=== PATIENT | male | born 1940 | race Caucasian/White ===

== ENCOUNTER 2017-07-07 12:09 | Observation (INO) | payer OTHER, MEDICARE ==
[~2017-07-07] VITALS: Ht 195.6 cm; Wt 137.0 kg
[2017-07-07 12:10] VITALS: BP 165/87; PULSE 79; RESP 16; TEMP 97.8; O2SAT 96
[2017-07-07 13:02] LABS: AUTOMATED NEUTROPHIL # 4.8 TH/MM3 (1.8-7.7); BASOPHIL # 0.1 TH/MM3 (0-0.2); EOSINOPHIL # 0.3 TH/MM3 (0-0.4); EOSINOPHIL % 3.9 % (0.0-4.0); HEMATOCRIT 48.6 % (39.0-51.0); HEMOGLOBIN 16.4 GM/DL (13.0-17.0); LYMPH % 30.8 % (9.0-44.0); LYMPHOCYTE # 2.7 TH/MM3 (1.0-4.8); MEAN CELL VOLUME 90.5 FL (80.0-100.0); MEAN CORPUSCULAR HEMOGLOBIN 30.6 PG (27.0-34.0); MEAN CORPUSCULAR HGB CONC 33.8 % (32.0-36.0); MEAN PLATELET VOLUME 9.4 FL (7.0-11.0); MONO % 9.8 % (0.0-8.0); MONOCYTE # 0.9 TH/MM3 (0-0.9); NEUT % 54.5 % (16.0-70.0); PLATELET COUNT 241 TH/MM3 (150-450); RED BLOOD COUNT 5.37 MIL/MM3 (4.50-5.90); RED CELL DISTRIBUTION WIDTH 14.5 % (11.6-17.2); WHITE BLOOD COUNT 8.8 TH/MM3 (4.0-11.0)
[2017-07-07] MEDS ORDERED: ASPIRIN 81 MG CHEW TAB PO ONE (13:15)
[2017-07-07] MEDS ORDERED: SODIUM CHLORID 0.9% 500 ML INJ 500 ML IV ONE (13:15)
[2017-07-07] MEDS ORDERED: SODIUM CHLORIDE 0.9% FLUSH 10 ML FLUSH IVF PRN (13:15)
[2017-07-07 13:25] LABS: BICARBONATE 29.1 MEQ/L (21.0-32.0); BLOOD UREA NITROGEN 11 MG/DL (7-18); CALCIUM 9.6 MG/DL (8.5-10.1); CHLORIDE 104 MEQ/L (98-107); CREATININE 0.96 MG/DL (0.60-1.30); GLOMERULAR FILTRATION RATE 76 ML/MIN (>89); GLUCOSE,RANDOM 97 MG/DL (74-106); SODIUM (NA) 139 MEQ/L (136-145); TROPONIN I LESS THAN 0.02 NG/ML (0.02-0.05)
[2017-07-07 13:51] LABS: PROTHROMBIN TIME - PATIENT 10.1 SEC (9.8-11.6)
[2017-07-07] MEDS ORDERED: ENAL20TA PO (13:57)
[2017-07-07] MEDS ORDERED: SELE2.5%T TOPICAL (13:57)
[2017-07-07] MEDS ORDERED: TRAM50TA PO (13:57)
[2017-07-07] MEDS ORDERED: OMEP20TA93 PO (13:57)
[2017-07-07] MEDS ORDERED: FLUO0.05 TOPICAL (13:57)
[2017-07-07] MEDS ORDERED: SIMV80TA PO (13:57)
--- NOTE | 2017-07-07 14:04 | RADRPT ---
EXAM DATE/TIME: 07/07/2017 13:38 [facility] COMPARISON: No previous studies available for comparison. INDICATIONS : Chest pain. MEDICAL HISTORY : None. SURGICAL HISTORY : None. ENCOUNTER: Initial ACUITY: 3 days PAIN SCORE: 7/10 LOCATION: Left upper chest FINDINGS: Mild compensated cardiomegaly without failure. No infiltrate, pneumothorax or effusion. The portion of the bony skeleton visualized is unremarkable. CONCLUSION: Mild compensated cardiomegaly. Fritz Gaines MD FACR on July 07, 2017 at 14:01 Board Certified Radiologist. This report was verified electronically.
[2017-07-07 14:12] LABS: ALBUMIN 3.7 GM/DL (3.4-5.0); ALT (GPT) 32 U/L (12-78); AST (GOT) 26 U/L (15-37); BICARBONATE 29.3 MEQ/L (21.0-32.0); BLOOD UREA NITROGEN 11 MG/DL (7-18); CHLORIDE 106 MEQ/L (98-107); CREATININE 0.89 MG/DL (0.60-1.30); GLOMERULAR FILTRATION RATE 83 ML/MIN (>89); GLUCOSE,RANDOM 91 MG/DL (74-106); MAGNESIUM 2.2 MG/DL (1.5-2.5); SODIUM (NA) 139 MEQ/L (136-145)
[2017-07-07 14:16] LABS: ALKALINE PHOSPHATASE 101 U/L (45-117); TOTAL BILIRUBIN ADULT 0.5 MG/DL (0.2-1.0); TROPONIN I LESS THAN 0.02 NG/ML (0.02-0.05)
--- NOTE | 2017-07-07 14:55 | PD ---
HPI Chief Complaint: Chest Pain Time Seen by Provider: 13:06 Travel History International Travel<30 days: No Contact w/Intl Traveler<30days: No Traveled to known affect area: No History of Present Illness HPI 76-year-old male brought over from the [place] with 3 day history of possible angina and chest pain. Patient was seen by his doctor at the [place] this morning and then referred here for further evaluation and workup. Patient has no previous history of LA or cardiac stent. He is unsure if he is ever had a stress test. He does take aspirin daily but does not take nitroglycerin. Patient states his pain is currently about a 1 out of 10. It is been intermittent over the past 3 days. He states that when it comes on it last about 30 seconds. Does not sound to be related to exertion. Patient denies nausea, vomiting, cough, shortness of breath, fever or chills. Patient has no known drug allergies. PFSH Past Medical History High Cholesterol: Yes Gastrointestinal Disorders: Yes (STEATOSIS OF LIVER, GASTROPARESIS) GERD: Yes Reproductive: Yes (ED, BPH) Myocardial Infarction: Yes Tetanus Vaccination: Unknown Influenza Vaccination: Yes Past Surgical History Abdominal Surgery: Yes (HERNIA REPAIR, UMBILICAL AND INGUINAL) Cholecystectomy: Yes Social History Alcohol Use: Yes (ONCE A MONTH) Tobacco Use: No Substance Use: No Allergies-Medications (Allergen,Severity, Reaction): Coded Allergies: No Known Allergies (Unverified , 07/07/17) Reported Meds & Prescriptions Reported Meds & Active Scripts Active Reported Selenium Sulfide Topical 2.5% (Selenium Sulfide) 2.5 % Lotn 1 Applic TOPICAL 2XWEEK Fluocinonide Topical (Fluocinonide) 0.05% Cream 1 Applic TOPICAL BID Apply thin layer to affected area(s) Omeprazole 20 Mg Tab 20 Mg PO DAILY Enalapril (Enalapril Maleate) 20 Mg Tab 20 Mg PO DAILY Tramadol (Tramadol HCl) 50 Mg Tab 50 Mg PO Q6H PRN Simvastatin 80 Mg Tab 80 Mg PO DAILY Review of Systems Except as stated in HPI: all other systems reviewed are Neg General / Constitutional: No: Fever, Chills Eyes: No: Visual changes HENT: No: Headaches Cardiovascular: Positive: Chest Pain or Discomfort Respiratory: No: Shortness of Breath Gastrointestinal: No: Abdominal Pain Genitourinary: No: Dysuria Musculoskeletal: No: Pain Skin: No Rash Neurologic: No: Weakness Psychiatric: No: Depression Endocrine: No: Polydipsia Hematologic/Lymphatic: No: Easy Bruising Physical Exam Narrative GENERAL: Patient appears in no acute distress SKIN: Warm and dry. Normal color. Normal turgor. HEAD: Atraumatic. Normocephalic. EYES: Pupils equal and round. No scleral icterus. No injection or drainage. ENT: No nasal bleeding or discharge. Mucous membranes pink and moist. Pharynx is clear. Airways patent NECK: Trachea midline. Supple and nontender CARDIOVASCULAR: Regular rate and rhythm. No murmurs gallops or rubs. RESPIRATORY: No accessory muscle use. Clear to auscultation. Breath sounds equal bilaterally. MUSCULOSKELETAL: Extremities without clubbing, cyanosis, or edema. No obvious deformities. NEUROLOGICAL: Awake and alert. No obvious cranial nerve deficits. Motor grossly within normal limits. Five out of 5 muscle strength in the arms and legs. Normal speech. PSYCHIATRIC: Appropriate mood and affect; insight and judgment normal. Data Data Last Documented VS Vital Signs Date Time Temp Pulse Resp B/P (MAP) Pulse Ox O2 Delivery O2 Flow Rate FiO2 07/07/17 12:10 97.8 79 16 165/87 (113) 96 Orders Orders Electrocardiogram (07/07/17 12:20) Complete Blood Count With Diff (07/07/17 12:20) Basic Metabolic Panel (Bmp) (07/07/17 12:20) Ckmb (Isoenzyme) Profile (07/07/17 12:20) Troponin I (07/07/17 12:20) Electrocardiogram (07/07/17 13:13) Ckmb (Isoenzyme) Profile (07/07/17 13:13) Comprehensive Metabolic Panel (07/07/17 13:13) Magnesium (Mg) (07/07/17 13:13) Prothrombin Time / Inr (Pt) (07/07/17 13:13) Act Partial Throm Time (Ptt) (07/07/17 13:13) Troponin I (07/07/17 13:13) Lipase (07/07/17 13:13) Chest, Single Ap (07/07/17 13:13) Ecg Monitoring (07/07/17 13:13) Bilateral Bp Monitoring (07/07/17 13:13) Iv Access Insert/Monitor (07/07/17 13:13) Oximetry (07/07/17 13:13) Oxygen Administration (07/07/17 13:13) Aspirin Chew (Aspirin Chew) (07/07/17 13:15) Sodium Chloride 0.9% Flush (Ns Flush) (07/07/17 13:15) Sodium Chlorid 0.9% 500 Ml Inj (Ns 500 M (07/07/17 13:15) Admit Order (Ed Use Only) (07/07/17 14:49) Labs Laboratory Tests Test 07/07/17 12:38 07/07/17 13:27 White Blood Count 8.8 TH/MM3 Red Blood Count 5.37 MIL/MM3 Hemoglobin 16.4 GM/DL Hematocrit 48.6 % Mean Corpuscular Volume 90.5 FL Mean Corpuscular Hemoglobin 30.6 PG Mean Corpuscular Hemoglobin Concent 33.8 % Red Cell Distribution Width 14.5 % Platelet Count 241 TH/MM3 Mean Platelet Volume 9.4 FL Neutrophils (%) (Auto) 54.5 % Lymphocytes (%) (Auto) 30.8 % Monocytes (%) (Auto) 9.8 % Eosinophils (%) (Auto) 3.9 % Basophils (%) (Auto) 1.0 % Neutrophils # (Auto) 4.8 TH/MM3 Lymphocytes # (Auto) 2.7 TH/MM3 Monocytes # (Auto) 0.9 TH/MM3 Eosinophils # (Auto) 0.3 TH/MM3 Basophils # (Auto) 0.1 TH/MM3 CBC Comment DIFF FINAL Differential Comment Blood Urea Nitrogen 11 MG/DL 11 MG/DL Creatinine 0.96 MG/DL 0.89 MG/DL Random Glucose 97 MG/DL 91 MG/DL Calcium Level 9.6 MG/DL 9.0 MG/DL Sodium Level 139 MEQ/L 139 MEQ/L Potassium Level 4.4 MEQ/L 4.3 MEQ/L Chloride Level 104 MEQ/L 106 MEQ/L Carbon Dioxide Level 29.1 MEQ/L 29.3 MEQ/L Anion Gap 6 MEQ/L 4 MEQ/L Estimat Glomerular Filtration Rate 76 ML/MIN 83 ML/MIN Total Creatine Kinase 74 U/L 76 U/L Troponin I LESS THAN 0.02 NG/ML LESS THAN 0.02 NG/ML Prothrombin Time 10.1 SEC Prothromb Time International Ratio 1.0 RATIO Activated Partial Thromboplast Time 25.4 SEC Total Protein 8.0 GM/DL Albumin 3.7 GM/DL Magnesium Level 2.2 MG/DL Alkaline Phosphatase 101 U/L Aspartate Amino Transf (AST/SGOT) 26 U/L Alanine Aminotransferase (ALT/SGPT) 32 U/L Total Bilirubin 0.5 MG/DL Lipase 119 U/L [facility] Medical Decision Making Medical Screen Exam Complete: Yes Emergency Medical Condition: Yes Differential Diagnosis Chest pain. Unstable angina. Cardiac syndrome. Narrative Course EKG shows normal sinus with right bundle branch block. Labs are unremarkable with first troponin less than 0.02. Patient is given an additional 234 mg aspirin p.o. IV access is obtained, the patient is given 500 mL's of normal saline. Chest x-ray is unremarkable for acute process. Patient will be admitted to the chest pain center for further evaluation and workup. Diagnosis Primary Impression: Chest pain at rest Admitting Information Admitting Physician Requests: Observation Condition: Stable Kristian Arreguin Jul 07, 2017 14:55
[2017-07-07] MEDS ORDERED: ACETAMINOPHEN 500 MG CPLT PO PRN (16:00)
[2017-07-07] MEDS ORDERED: ONDANSETRON HCL 4 MG/2 ML VIAL IV PUSH PRN (16:00)
[2017-07-07] MEDS ORDERED: NITROGLYCERIN 0.4 MG SL 25 TABS/BTL SL PRN (16:00)
--- NOTE | 2017-07-07 16:36 | HHI.HP ---
HPI Primary Care Physician [facility] Chief Complaint chest pain History of Present Illness 76-year-old male with history of hypertension, hyperlipidemia, and GERD presents emergency room for further evaluation of chest pain. [facility]en [facility] today notify PCP of 3 day history of reported nonexertional chest pain. Location points to epigastric area. Radiation to left jaw.. Characterized as dull pain. No associated symptoms of nausea, vomiting, or dyspnea. Endorses occasional diaphoresis. Duration typically lasts 45 minutes and then eases up. No known precipitating or relieving factors. Review of Systems General: No fatigue,weakness, fever, chills, or recent illness change in appetite. Has been adjusted help. HEENT: No IQBAL, no vision changes, no nasal congestion or drainage, no dysphasia CV: No CP, pressure, palpitations, intermittent leg pain, dizziness RESP: No SOB, cough, wheeze, hemoptysis, asthma GI: No nausea or vomiting, bowel changes, diarrhea, constipation, pain, distention, melena, blood in the stool. No change in appetite, no unintentional weight gain or weight loss : No dysuria, urgency, frequency, hematuria, or history of kidney stones EXT: No lower leg edema, no parathesias MS: No discomfort or change in ROM NEURO: No change in memory, dizziness, difficulty with balance, LOC, motor/ sensory deficits PSYCH: No anxiety, depression, suicidal ideation SKIN: No rashes, no concerning lesions Past Family Social History Allergies: Coded Allergies: No Known Allergies (Unverified , 07/07/17) Past Medical History GERD, hyperlipidemia, hypertension, BPH, chronic pain Past Surgical History Hernia repair, cholecystectomy Reported Medications Reported Meds & Active Scripts Active Reported Selenium Sulfide Topical 2.5% (Selenium Sulfide) 2.5 % Lotn 1 Applic TOPICAL 2XWEEK Fluocinonide Topical (Fluocinonide) 0.05% Cream 1 Applic TOPICAL BID Apply thin layer to affected area(s) Omeprazole 20 Mg Tab 20 Mg PO DAILY Enalapril (Enalapril Maleate) 20 Mg Tab 20 Mg PO DAILY Tramadol (Tramadol HCl) 50 Mg Tab 50 Mg PO Q6H PRN Simvastatin 80 Mg Tab 80 Mg PO DAILY Active Ordered Medications Current Medications Medications (Trade) Dose Ordered Sig/Henna Route Start Time Stop Time Status Last Admin (NS Flush) 2 ml UNSCH PRN IVF 07/07/17 13:15 (NS Flush) 2 ml BID IV FLUSH 07/07/17 21:00 (Tylenol) 500 mg Q4H PRN PO 07/07/17 16:00 (Zofran Inj) 4 mg Q6H PRN IV PUSH 07/07/17 16:00 (Nitrostat Sl) 0.4 mg Q5M PRN SL 07/07/17 16:00 (Aspirin) 325 mg DAILY PO 07/08/17 09:00 Social History Known hyperlipidemia and hypertension. No known coronary artery disease or diabetes. Lifelong nonsmoker. Denies alcohol or illegal drug use. . Retired. [employer] Past cardiac testing No past cardiac testing. Denies ever having cardiac catheterization. Physical Exam Vital Signs Vital Signs Date Time Temp Pulse Resp B/P (MAP) Pulse Ox O2 Delivery O2 Flow Rate FiO2 07/07/17 12:10 97.8 79 16 165/87 (113) 96 Physical Exam GENERAL: Alert WN, WD, NAD, pleasant, moderately obese male HEAD: NC, AT CV: RRR, without murmur, rub, gallop, no JVD, S1-S2 no S3-S4. RESP: Clear lungs throughout bilateral, no crackles, wheeze, rhonchi, symmetrical chest rise, nonlabored, able to speak in full sentences ABD: Soft, NT, ND, no masses, positive bowel tones EXT: Pulses +24, no dependent edema MS: Normal tone 4 extremities, nontender, no obvious deformities, full range of motion NEURO: CN II through CN XII grossly intact, motor strength 5/5 PSYCH: A+O 3, pleasant affect, appropriate speech, appropriate mood and affect , insight and judgment SKIN: Normal turgor, normal texture, no lesions, no rashes, brisk cap refill, even hair distribution Laboratory Laboratory Tests Test 07/07/17 12:38 07/07/17 13:27 White Blood Count 8.8 Red Blood Count 5.37 Hemoglobin 16.4 Hematocrit 48.6 Mean Corpuscular Volume 90.5 Mean Corpuscular Hemoglobin 30.6 Mean Corpuscular Hemoglobin Concent 33.8 Red Cell Distribution Width 14.5 Platelet Count 241 Mean Platelet Volume 9.4 Neutrophils (%) (Auto) 54.5 Lymphocytes (%) (Auto) 30.8 Monocytes (%) (Auto) 9.8 Eosinophils (%) (Auto) 3.9 Basophils (%) (Auto) 1.0 Neutrophils # (Auto) 4.8 Lymphocytes # (Auto) 2.7 Monocytes # (Auto) 0.9 Eosinophils # (Auto) 0.3 Basophils # (Auto) 0.1 CBC Comment DIFF FINAL Differential Comment Blood Urea Nitrogen 11 11 Creatinine 0.96 0.89 Random Glucose 97 91 Calcium Level 9.6 9.0 Sodium Level 139 139 Potassium Level 4.4 4.3 Chloride Level 104 106 Carbon Dioxide Level 29.1 29.3 Anion Gap 6 4 Estimat Glomerular Filtration Rate 76 83 Total Creatine Kinase 74 76 Troponin I LESS THAN 0.02 LESS THAN 0.02 Prothrombin Time 10.1 Prothromb Time International Ratio 1.0 Activated Partial Thromboplast Time 25.4 Total Protein 8.0 Albumin 3.7 Magnesium Level 2.2 Alkaline Phosphatase 101 Aspartate Amino Transf (AST/SGOT) 26 Alanine Aminotransferase (ALT/SGPT) 32 Total Bilirubin 0.5 Lipase 119 Result Diagram: 07/07/17 1238 07/07/17 1327 Imaging Last 48 hours Impressions Chest X-Ray 07/07/17 1313 Signed Impressions: Service Date/Time: Friday, July 07, 2017 13:38 - CONCLUSION: Mild compensated cardiomegaly. Fritz Gaines MD FACR Course EKG normal sinus rhythm right bundle branch block Caprini VTE Risk Assessment Caprini VTE Risk Assessment: Mod/High Risk (score >= 2) Caprini Risk Assessment Model Point Value = 1 Point Value = 2 Point Value = 3 Point Value = 5 Age 41-60 Minor surgery BMI > 25 kg/m2 Swollen legs Varicose veins or History of unexplained or recurrent spontaneous Oral contraceptives or hormone replacement Sepsis (< 1 month) Serious lung disease, including pneumonia (< 1 month) Abnormal pulmonary function Acute myocardial infarction Congestive heart failure (< 1 month) History of inflammatory bowel disease Medical patient at bed rest Age 61-74 Arthroscopic surgery Major open surgery (> 45 min) Laparoscopic surgery (> 45 min) Malignancy Confined to bed (> 72 hours) Immobilizing plaster cast Central venous access Age >= 75 History of VTE Family history of VTE Factor V Leiden Prothrombin [id number] Lupus anticoagulant Anticardiolipin antibodies Elevated serum homocysteine Heparin-induced thrombocytopenia Other congenital or acquired thrombophilia Stroke (< 1 month) Elective arthroplasty Hip, pelvis, or leg fracture Acute spinal cord injury (< 1 month) Prophylaxis Regimen Total Risk Factor Score Risk Level Prophylaxis Regimen 0-1 Low Early ambulation 2 Moderate Order ONE of the following: *Sequential Compression Device (SCD) *Heparin 5000 units SQ BID 3-4 Higher Order ONE of the following medications: *Heparin 5000 units SQ TID *Enoxaparin/Lovenox 40 mg SQ daily (WT < 150 kg, CrCl > 30 mL/min) *Enoxaparin/Lovenox 30 mg SQ daily (WT < 150 kg, CrCl > 10-29 mL/min) *Enoxaparin/Lovenox 30 mg SQ BID (WT < 150 kg, CrCl > 30 mL/min) AND/OR *Sequential Compression Device (SCD) 5 or more Highest Order ONE of the following medications: *Heparin 5000 units SQ TID (Preferred with Epidurals) *Enoxaparin/Lovenox 40 mg SQ daily (WT < 150 kg, CrCl > 30 mL/min) *Enoxaparin/Lovenox 30 mg SQ daily (WT < 150 kg, CrCl > 10-29 mL/min) *Enoxaparin/Lovenox 30 mg SQ BID (WT < 150 kg, CrCl > 30 mL/min) AND *Sequential Compression Device (SCD) Assessment and Plan Assessment and Plan Atypical chest pain-admitted chest pain center. Rule out with 3 sets of EKGs, cardiac enzymes, monitoring Solish overnight. Seen and evaluated by Dr. Tiburcio Sharma. Discomfort suggestive of acid reflux, however due to risk factors plan to complete Lexiscan in a.m. Patient agreeable plan of care. GERD-continue omeprazole [place] Jul 07, 2017 16:36
[2017-07-07 17:02] VITALS: BP 142/82; PULSE 72; RESP 18; TEMP 98; O2SAT 96
[2017-07-07 17:46] LABS: TROPONIN I LESS THAN 0.02 NG/ML (0.02-0.05)
[2017-07-07 20:11] VITALS: BP 133/60; PULSE 68; RESP 18; TEMP 98; O2SAT 91
[2017-07-07] MEDS: SODIUM CHLORIDE 0.9% FLUSH 10 ML FLUSH IV FLUSH SCH (20:30)
[2017-07-07 23:00] VITALS: PULSE 67
[2017-07-08 01:00] VITALS: BP 119/58; PULSE 68; RESP 18; TEMP 98; O2SAT 92
[2017-07-08 05:58] VITALS: BP 168/78; PULSE 74; RESP 18; TEMP 98; O2SAT 97
[2017-07-08 07:00] VITALS: PULSE 63
--- NOTE | 2017-07-08 08:18 | PD.CARD.PN ---
Subjective Subjective Remarks No complaints overnight. Continues to have epigastric mild constant discomfort with an occasional metallic taste. Constant Monday episode. Expresses increase family situational stress due to conflict with granddaughter. Objective Medications Current Medications Medications (Trade) Dose Ordered Sig/Henna Route Start Time Stop Time Status Last Admin (NS Flush) 2 ml UNSCH PRN IVF 07/07/17 13:15 (NS Flush) 2 ml BID IV FLUSH 07/07/17 21:00 (Tylenol) 500 mg Q4H PRN PO 07/07/17 16:00 (Zofran Inj) 4 mg Q6H PRN IV PUSH 07/07/17 16:00 (Nitrostat Sl) 0.4 mg Q5M PRN SL 07/07/17 16:00 (Aspirin) 325 mg DAILY PO 07/08/17 09:00 (Vasotec) 20 mg DAILY PO 07/08/17 09:00 (Protonix) 20 mg DAILY PO 07/08/17 09:00 (Pravachol) 80 mg DAILY PO 07/08/17 09:00 Vital Signs / I&O Vital Signs Date Time Temp Pulse Resp B/P (MAP) Pulse Ox O2 Delivery O2 Flow Rate FiO2 07/08/17 05:58 98.0 74 18 168/78 (108) 97 07/08/17 01:00 98.0 68 18 119/58 (78) 92 07/07/17 23:00 67 07/07/17 20:11 98.0 68 18 133/60 (84) 91 07/07/17 17:02 98.0 72 18 142/82 (102) 96 07/07/17 16:40 07/07/17 12:10 97.8 79 16 165/87 (113) 96 I/O 07/07/17 07/07/17 07/07/17 07/08/17 07/08/17 07/08/17 07:00 15:00 23:00 07:00 15:00 23:00 Intake Total 500 ml Balance 500 ml Intake IV Total 500 ml Physical Exam GENERAL: Alert WN, WD, NAD, pleasant, obese, elderly male HEAD: NC, AT CV: RRR, without murmur, rub, gallop, no JVD, S1-S2 no S3-S4. Chest wall nontender with palpation. RESP: Clear lungs throughout bilateral, no crackles, wheeze, rhonchi, symmetrical chest rise, nonlabored, able to speak in full sentences ABD: Soft, NT, ND, no masses, positive bowel tones EXT: Pulses +24, no dependent edema MS: Normal tone 4 extremities, no obvious deformities, full range of motion NEURO: CN II through CN XII grossly intact, motor strength 5/5 PSYCH: A+O 3, pleasant affect, appropriate speech, appropriate mood and affect , insight and judgment SKIN: Normal turgor, normal texture, no lesions, no rashes, brisk cap refill, even hair distribution Laboratory Laboratory Tests Test 07/07/17 12:38 07/07/17 13:27 07/07/17 16:50 White Blood Count 8.8 TH/MM3 Red Blood Count 5.37 MIL/MM3 Hemoglobin 16.4 GM/DL Hematocrit 48.6 % Mean Corpuscular Volume 90.5 FL Mean Corpuscular Hemoglobin 30.6 PG Mean Corpuscular Hemoglobin Concent 33.8 % Red Cell Distribution Width 14.5 % Platelet Count 241 TH/MM3 Mean Platelet Volume 9.4 FL Neutrophils (%) (Auto) 54.5 % Lymphocytes (%) (Auto) 30.8 % Monocytes (%) (Auto) 9.8 % Eosinophils (%) (Auto) 3.9 % Basophils (%) (Auto) 1.0 % Neutrophils # (Auto) 4.8 TH/MM3 Lymphocytes # (Auto) 2.7 TH/MM3 Monocytes # (Auto) 0.9 TH/MM3 Eosinophils # (Auto) 0.3 TH/MM3 Basophils # (Auto) 0.1 TH/MM3 CBC Comment DIFF FINAL Differential Comment Blood Urea Nitrogen 11 MG/DL 11 MG/DL Creatinine 0.96 MG/DL 0.89 MG/DL Random Glucose 97 MG/DL 91 MG/DL Calcium Level 9.6 MG/DL 9.0 MG/DL Sodium Level 139 MEQ/L 139 MEQ/L Potassium Level 4.4 MEQ/L 4.3 MEQ/L Chloride Level 104 MEQ/L 106 MEQ/L Carbon Dioxide Level 29.1 MEQ/L 29.3 MEQ/L Anion Gap 6 MEQ/L 4 MEQ/L Estimat Glomerular Filtration Rate 76 ML/MIN 83 ML/MIN Total Creatine Kinase 74 U/L 76 U/L 68 U/L Troponin I LESS THAN 0.02 NG/ML LESS THAN 0.02 NG/ML LESS THAN 0.02 NG/ML Prothrombin Time 10.1 SEC Prothromb Time International Ratio 1.0 RATIO Activated Partial Thromboplast Time 25.4 SEC Total Protein 8.0 GM/DL Albumin 3.7 GM/DL Magnesium Level 2.2 MG/DL Alkaline Phosphatase 101 U/L Aspartate Amino Transf (AST/SGOT) 26 U/L Alanine Aminotransferase (ALT/SGPT) 32 U/L Total Bilirubin 0.5 MG/DL Lipase 119 U/L Imaging Last 24 hours Impressions Chest X-Ray 07/07/17 1313 Signed Impressions: Service Date/Time: Friday, July 07, 2017 13:38 - CONCLUSION: Mild compensated cardiomegaly. Fritz Gaines MD FACR Assessment and Plan Assessment and Plan Atypical chest pain-admitted chest pain center. Ruled out with 3 sets of EKGs, cardiac enzymes, monitoring on telemetry overnight. Seen and evaluated by Dr. Tiburcio Sharma yesterday. Proceed with previous plan of chemical stress test this a.m. If unremarkable, plan for discharge home with follow-up with PCP. Patient agreeable plan of care. GERD-continue omeprazole [place] Jul 08, 2017 08:18
[2017-07-08 08:22] VITALS: BP 136/75; PULSE 73; RESP 18; TEMP 97.4; O2SAT 93
[2017-07-08] MEDS ORDERED: ASPIRIN 325 MG TAB PO SCH (09:00)
[2017-07-08] MEDS ORDERED: PRAVASTATIN SOD 80 MG TAB PO SCH (09:00)
[2017-07-08] MEDS ORDERED: PANTOPRAZOLE SOD 20 MG DELAYED RELEASE TAB PO SCH (09:00)
[2017-07-08] MEDS ORDERED: ENALAPRIL MALEATE 10 MG TAB PO SCH (09:00)
[2017-07-08] MEDS: SODIUM CHLORIDE 0.9% FLUSH 10 ML FLUSH IV FLUSH SCH (10:04)
[2017-07-08] MEDS ORDERED: REGADENOSON INJ 0.4 MG/5 ML SYR ONE (11:37)
[2017-07-08 13:18] VITALS: BP 130/66; PULSE 86; RESP 18; TEMP 97.5; O2SAT 94
--- NOTE | 2017-07-08 13:23 | RADRPT ---
EXAM DATE/TIME: 07/08/2017 11:47 [facility] COMPARISON: CHEST SINGLE AP, July 07, 2017, 13:38. INDICATIONS : Chest pain. Angina. DOSE: 35 mCi Tc99m Myoview at stress. 11 mCi Tc99m Myoview at rest. 0.4 mg Lexiscan STRESS SYMPTOMS: Dyspnea and facial flush. EJECTION FRACTION: > 70% MEDICAL HISTORY : Myocardial infarction. Gastroesophageal reflux disease. Gastroparesis. SURGICAL HISTORY : Cholecystectomy. Umbilical hernia repair. ENCOUNTER: Initial ACUITY: 1 day PAIN SCALE: 1/10 LOCATION: Bilateral chest TECHNIQUE: The patient underwent pharmacologic stress with infusion of prescribed dose. Continuous ECG tracing was monitored during stress. Gated SPECT imaging was performed after stress and conventional SPECT i maging was performed at rest. The examination was performed on a SPECT/CT scanner, both attenuation and non-corrected datasets were reviewed. FINDINGS: DISTRIBUTION: The maximum perfused segment at stress is in the anterior wall. PERFUSION STUDY: The pattern of perfusion at stress is within normal limits. GATED STUDY: There is intact wall motion and thickening without hypokinetic or dyskinetic segments. CONCLUSION: Normal examination. RISK CATEGORY: Low (<1% Annual Mortality Rate) Rodrigo Montiel MD on July 08, 2017 at 13:19 Board Certified Radiologist. This report was verified electronically.
[2017-07-08] MEDS ORDERED: OMEP40CA2 PO (13:29)
--- NOTE | 2017-07-08 13:29 | HHI.DCPOC ---
Discharge Care Plan Diagnosis: (1) Atypical chest pain (2) GERD (gastroesophageal reflux disease) (3) Situational stress Goals to Promote Your Health * To prevent worsening of your condition and complications * To maintain your health at the optimal level Directions to Meet Your Goals Take your medications as prescribed Follow your dietary instruction Follow activity as directed Keep your appointments as scheduled Take your immunizations and boosters as scheduled If your symptoms worsen call your PCP, if no PCP go to Urgent Care Center or Emergency Room Smoking is Dangerous to Your Health. Avoid second hand smoke Call the 24-hour hour crisis hotline for domestic abuse at [place] Jul 08, 2017 13:29
--- NOTE | 2017-07-08 16:29 | EKG ---
Date Performed: 07/07/2017 Time Performed: 12:33:40 PTAGE: 76 years EKG: Sinus rhythm INDETERMINATE AXIS RIGHT BUNDLE BRANCH BLOCK ABNORMAL ECG NO PREVIOUS TRACING DOCTOR: Carloz Napier Interpretating Date/Time 07/08/2017 16:27:56
--- NOTE | 2017-07-08 16:30 | TR ---
Date Performed: 07/08/2017 Time Performed: 12:13:44 DOCTOR: Carloz Napier DRUG LIST: CLINICAL HISTORY: REASON FOR TEST: CHEST PAIN REASON FOR ENDING: OBSERVATION: CONCLUSION: Lexiscan stress test was performed under standard four minute protocol. Radionuclide was injected one minute prior to ending the test. No electrocardiographic abormalities were present to suggest ischemia. Nuclear imaging and interpretation are pending. COMMENTS:
== END 2017-07-08 14:45 | disposition home or self-care (01) ==
LOC: NEPC 12:09 → NEDA 14:51 → MERGE 14:51 → NEPFCDU 16:54
PROVIDERS: ADMIT Internal Medicine Cardiovascular Disease; ATTEND Internal Medicine Cardiovascular Disease
DX: R07.89 Other chest pain (principal); K21.9 Gastro-esophageal reflux disease without esophagitis; I11.9 Hypertensive heart disease without heart failure; E78.5 Hyperlipidemia, unspecified; R61 Generalized hyperhidrosis; R06.00 Dyspnea, unspecified; R94.31 Abnormal electrocardiogram [ECG] [EKG]; I45.10 Unspecified right bundle-branch block; E78.00 Pure hypercholesterolemia, unspecified; I25.2 Old myocardial infarction; K76.0 Fatty (change of) liver, not elsewhere classified; N40.0 Benign prostatic hyperplasia without lower urinary tract symptoms; Z79.899 Other long term (current) drug therapy
CPT/HCPCS: 71045; 78452; 80048; 80053; 82550; 83690; 83735; 84484; 85025; 85610; 85730; 93005; 93017; 96360; 99285; A9502; G0378; J2785; J7040